=== PATIENT | male | born 1975 ===

== ENCOUNTER 2025-10-15 15:33 | Outpatient (AMB) | payer BC, SELFPAY ==
[2025-10-15 15:37] VITALS: BMI 32.5
--- NOTE | 2025-10-15 15:37 | A.PHYSOV ---
Vital Signs 10/15/25 15:37 Height 5 ft 9 in Weight 220 lb BMI 32.5 Intake Visit Reasons: F/U after injection 08/24/2025 Intake Note: Patient is a 50 year old male here for a follow up on 08/24/25 caudal injection. 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 The patient reports feeling 90% better since the caudal injection on 08/24/2025 and is not currently taking any pain medications. Prior to the injection, the pain limited the patient's desire to do anything. The patient still experiences some residual symptoms, described as a feeling of tightness in the upper gluteal region upon standing after prolonged periods of sitting, which resolves with stretching. The patient notes that active days are better. The patient reports a weight loss from 292 lbs to 270 lbs, attributed to being more active. Pain Description - Location: The patient reports feeling discomfort in the upper gluteal region. - Character: The discomfort is described as a feeling of tightness that requires stretching. - Exacerbating factors: Symptoms are noticed after getting up from prolonged sitting, such as watching a football game or working at a computer. - Relieving factors: Stretching alleviates the symptoms; active days are generally better. - Interference with function: Prior to the injection, the pain was significant enough that the patient didn't want to do anything. - Current status: The patient reports a 90% improvement in symptoms and is not taking any pain medications. Procedure: Caudal injection 08/24/2025 90% reduction of his pain [facility] Social History (Updated 10/15/25 @ 15:40 by Dinora Cameron MA) Alcohol intake: current Alcohol intake frequency: a few times a month Patient Tobacco Use Status: Never used Tobacco Use of substances other than those prescribed or required for medical reasons: No Review of Systems Narrative Review of Systems - Musculoskeletal: Reports intermittent tightness in the upper gluteal region after prolonged sitting. - Constitutional: Reports weight loss. Physical Exam Exam Exam: Physical Exam Lumbar Spine: Examination of his lumbar spine, there is no visible swelling or deformity. He is tender to lower lumbar facets. He is otherwise nontender. Full range of motion of his lumbar spine. He denies any pain with facet loading. Special Tests: Lhermittes sign was negative Heel Toe walk is normal Left straight leg raise: Negative Right straight leg raise: Negative Special tests Nuzhat test is negative Ganslen's test is negative SI Joint compression test negative Louise test negative Piriformis stretch is negative Lower Extremities: Full range of motion bilateral lower extremities. No calf pain or edema. Neuro: Sensation: Intact to lower extremities bilaterally Strength L2 (Psoas): 5/5 on the left and 5/5 on the right. L3 (Quads): 5/5 on the left and 5/5 on the right. L4 (Ant tibialis): 5/5 on the left and 5/5 on the right. L5 (EHL) 5/5 on the left and 5/5 on the right. S1 (Gastroc): 5/5 on the left and 5/5 on the right. DTR L4: (Patellar) Left 2 Right 2 S1: (Achilles) Left 2 Right 2 Babinski Downgoing No pathologic clonus. No involuntary movement. Vital Signs: BMI result Body Mass Index 32.5 Assessment & Plan Assessment & Plan (1) Lumbar radiculopathy: Code(s): M54.16 - Radiculopathy, lumbar region Category: Medical (2) Lumbar spondylosis: Code(s): M47.816 - Spondylosis without myelopathy or radiculopathy, lumbar region Category: Medical Plan Pain Management - Analgesia: The patient reports 90% pain improvement following a spinal steroid injection and is not using any oral pain medications. - Activities of Daily Living: The patient is now much more active, though notes some residual tightness after prolonged sitting. - Adverse Effects: The patient expressed not being a fan of the injection procedure itself but reported no other adverse effects. - Aberrant Drug-Related Behaviors: None noted; the patient is not taking pain medications. - Affect: The patient reports feeling better. Plan Patient was informed and verbally consented to the use of an ambient scribe for clinic note documentation during this visit. 1. Lumbar Disc Displacement The patient has experienced 90% improvement in symptoms following a spinal steroid injection for a lumbar disc bulge. The patient was counseled that the steroid is long-acting, lasting 3-6 months, and the ideal outcome is for the disc bulge to shrink over time. The patient was advised to continue with caution, avoiding heavy lifting and being mindful of the underlying condition despite feeling better. Encouraged low-impact activities such as walking, biking, swimming, and yoga. If the pain returns and affects quality of life after 4 months, the patient can call the office to schedule a repeat injection. Long-term surgical options were discussed but are not currently recommended. 2. Obesity The patient has successfully lost approximately 22 pounds through increased physical activity. The patient was encouraged to continue with weight loss, healthy eating, and low-impact activity, as this will also benefit the back condition. Follow-up with our office as needed. Thank you for allowing me to participate in the care of your patient. Coding Level of Care Code Tele Est Pt Level 3 (04508) Diagnoses Lumbar radiculopathy M54.16 Lumbar spondylosis M47.816
--- OUTSIDE RECORDS SUMMARY | 2025-10-15 18:31 | XMS_ITS | Clinical Summary ---
Author Organization [address] [facility] Building Address [address] [place] [address] Phone Care Team Providers Care Machine I Coremaker Name Role Phone Larisa Marks MD Primary Care Provider [phone] Allergies No known active allergies Medications clotrimazole-be tamethasone (LOTRISONE) 1-0.05 % cream Apply 1 Application topically 2 (two) times a day. 1 Active triamcinolone (KENALOG) 0.1 % cream Apply 1 Application topically 2 (two) times a day. 0 Active valACYclovir (VALTREX) 1 gram tablet Take 1 tablet (1,000 mg total) by mouth 1 (one) time each day. 14 tablet 1 5 Active gabapentin (NEURONTIN) 100 mg capsule Take 1 capsule (100 mg total) by mouth 2 (two) times a day. 60 each 1 5 Active simvastatin (ZOCOR) 20 mg tablet TAKE 1 TABLET BY MOUTH EVERYDAY AT BEDTIME 90 tablet 5 Active cyclobenzaprine (FLEXERIL) 10 mg tablet Take 1 tablet (10 mg total) by mouth 2 (two) times a day if needed for muscle spasms. 30 tablet 1 5 Active diclofenac (VOLTAREN) 75 mg EC tabletIndicatio ns:Chronic bilateral low back pain with bilateral sciatica Take 1 tablet (75 mg total) by mouth 2 (two) times a day. Do not crush, chew, or split. 60 each 5 09/21/20 25 Active Problems Problem Noted Date Diagnosed Date History of herpes genitalis 09/21/2024 Assessment & Plan (09/21/2024 2:28 PM EST): I have refilled his Valtrex. He only gets 1-2 flares a year. Asthma 12/07/2013 Overview (01/24/2024): As child Hyperlipidemia 10/17/2008 Assessment & Plan (09/21/2024 2:28 PM EST): Low-cholesterol diet discussed. Congratulated him on losing weight. He has been actively focusing on a better diet now. Will monitor lipid panel. Will continue current regimen of simvastatin 20 mg daily. Orders: Lipid panel with reflex to direct LDL; Future Obesity 10/17/2008 Displacement of lumbar inter vertebral disc without myelopathy 10/14/2006 Encounters Date Type Department Care Team Description 09/19/2025 3:15 PM EST Consult Bariatric Surgery - [place] [address] [place] [address] Aleksandr Mckeon MD Class 1 obesity due to excess calories with body mass index (BMI) of 34.0 to 34.9 in adult, unspecified whether serious comorbidity present (Primary Dx) 07/20/2025 Telephone Internal Medicine - [facility] [address] [place] [address] Baldev Lorenzo MD from Last 3 Months Immunizations Immunization Administration Dates Next Due Influenza Quadravalent, MDCK , 0.5ml, preservative free (Flucelvax) 6mo and older 12/21/2023,09/20/2020,12/27/2018 Influenza trivalent, MDCK, 0 .5mL, preservative free (Flucelvax) 6mo and older 09/21/2024 Influenza trivalent, with pr eservative (Fluzone; Afluria) 6mo and older 10/17/2008 Moderna SARS-CoV-2 COVID-19, mRNA, LNP-S, preservative free 11/25/2023 Intoloop SARS-CoV-2 COVID-19, mRNA, LNP-S, preservative free 04/08/2021,03/18/2021 Pneumococcal polysaccharide 23 valent (Pneumovax 23) 2yo and older 03/09/2014 Td Tetanus diptheria (Tdvax) 7yo and older 12/21,01/27/2002 Tdap Tetanus diptheria acell ular pertussis (Boostrix; Adacel) 7yo and older 03/07/2013 Surgical History Surgery Date Site/Laterality Comments SHOULDER SURGERY 11/15/1990 PROCEDURE: [place] UNLISTED PROCEDURE SHOULDER; COMMENT: for repeat dislocations left shoulder VASECTOMY PROCEDURE: [place] VASECTOMY UNI/BI SPX W/POSTOP SEMEN EXAMS WISDOM TOOTH EXTRACTION PROCEDURE: HISTORICAL WISDOM TEETH EXTRACTION COLONOSCOPY 01/19/2024 PROCEDURE: HISTORICAL COLONOSCOPY; COMMENT: Nonbleeding internal hemorrhoids. Otherwise normal. Repeat colonoscopy in 10 years. Medical History Medical History Date Comments Displacement of lumbar inter vertebral disc without myelopathy 10/14/2006 DX:Displacement of lumbar intervertebral disc without myelopathy Obesity 10/17/2008 DX:Obesity Hyperlipidemia 10/17/2008 DX:Hyperlipidemi a Asthma 12/07/2013 DX:Asthma; COMME NT: As child H/O colonoscopy 02/09/2024 DX:H/O colonosco py Family History Medical History Relation Name Comments Other: psoriasis Brother Strabismus Brother had corrective surgery. Alcohol abuse Father Coronary artery disease Father Heart attack Father Other: PAD Father Other: Skin cancer Father unsure ty pe Other: Degenerative disk disease Mother Heart attack Paternal Grandfather Diabetes Paternal Grandmother Heart attack Paternal Grandmother Asthma Son Heart attack Uncle 1 Paternal uncle, age 40 Other: Throat cancer Uncle 2 Materna l uncle Blindness Neg Hx Cataracts Neg Hx Glaucoma Neg Hx Macular degeneration Neg Hx Relation Name Status Comments Brother Father Maternal Grandfather Maternal Grandmother Mother Alive Paternal Grandfather (Age 62) Paternal Grandmother Alive Son Uncle 1 Uncle 2 Social History Tobacco Use Types Packs/Day Years Used Date Smoking Tobacco: Never Smokeless Tobacco: Never Tobacco Cessation:Counseling Given: Not Answered Alcohol Use Standard Drinks/Week Comments Yes 0 (1 standard drink = 0.6 oz pur e alcohol) Sex and Gender Information Value Date Recorded Sex Assigned at Not on file Legal Sex Male 3:19 PM EST Gender Identity Not on file Sexual Orientation Not on file Obstetrics History Last Filed Vital Signs Vital Sign Reading Time Taken Comments Blood Pressure 143/85 09/19/2025 3:15 PM EST Pulse 94 09/19/2025 3:15 PM EST Temperature 36.6 C (97.8 F) 09/19/2025 3:15 PM EST Respiratory Rate 16 05/28/2025 10:58 AM EDT Oxygen Saturation 97% 12/02/2024 10:44 AM EST Inhaled Oxygen Concentration - - Weight 125 kg (276 lb) 09/19/2025 3:15 PM EST Height 180.3 cm (5' 11 ) 09/19/2025 3:15 PM EST Body Mass Index 38.49 09/19/2025 3:15 PM EST Plan of Treatment Upcoming Encounters Date Type Department Care Team (Late st Contact Info) Description 03/21/2026 4:00 PM EDT Office Visit Bariatric Surgery - [address] [place] [address] Aleksandr Mckeon MD [address] [place] [phone] Health Maintenance Due Date Last Done Comments Hepatitis B Vaccines (1 of 3 - 19+ 3-dose series) 1993 Pneumococcal Vaccine: 50+ Years (2 of 2 - PCV) 03/09/2015 03/09/2014 HIV Screening 10/14/2022 Hepatitis C Screening 10/14/2022 Social Influencers of Health Screening 10/14/2022 RSV Immunization Adult Patients (1 - Risk 50-74 years 1-dose series) 2024 Zoster Vaccines (1 of 2) 2024 Depression Screening 11/15/2024 COVID-19 Vaccine ( - season) 2025 11/25/2023, 04/08/2021, 03/18/2021 Influenza Vaccine (#1) 2025 , 12/21/2023, 09/20/2020, Additional history exists Cholesterol Screening (Lipid Panel) 09/30/2029 09/30/2024, 08/10/2024, 08/10/2024, Additional history exists DTaP,Tdap,and Td Vaccines (4 - Td or Tdap) 12/21/2033 12/21/2023, 03/07/2013, 01/27/2002 Colorectal Cancer Screening: Colonoscopy 02/07/2034 02/08/2024 HIB Vaccines Aged Out No longer eligi ble based on patient's age to complete this topic HPV Vaccines Aged Out No longer eligi ble based on patient's age to complete this topic Hepatitis A Vaccines Aged Out No long er eligible based on patient's age to complete this topic IPV Vaccines Aged Out No longer eligi ble based on patient's age to complete this topic MMR Vaccines Aged Out No longer eligi ble based on patient's age to complete this topic Meningococcal ACWY Vaccine Aged Out N o longer eligible based on patient's age to complete this topic Meningococcal B Vaccine Aged Out No l onger eligible based on patient's age to complete this topic RSV Immunization Patients Under 20 months Aged Out No longer eligible based on patient's age to complete this topic Varicella Vaccines Aged Out No longer eligible based on patient's age to complete this topic Procedures Procedure Name Priority Date/Time Associated Diagnosis Comments LIPID PANEL Routine 08/10/2024 COLONOSCOPY Routine 02/08/2024 from Last 3 Months or Most Recently Relevant to Health Maintenance Results * (ABNORMAL) Lipid panel (08/10/2024) LDL/HDL Ratio 5(A) 0 - 4 Triglycerides 220(A) 0 - 150 mg/dL Cholesterol 190 0 - 200 mg/dL HDL 35(A) >=40 mg/dL LDL Cholesterol 111(A) 0 - 100 mg/dL Blood Venous blood specimen / Unknown Historical Provider LAB BLOOD ORDERABLES Nellie l Result * Colonoscopy (02/08/2024) Colonoscopy no interpretation , abstracted Anatomical Region Laterality Modality Other Historical Provider HEALTH MAINTENANCE Final Result from Last 3 Months or Most Recently Relevant to Health Maintenance Insurance [employer] (INDEPENDENCE) Care Teams Machine I Coremaker Relationship Specialty Start Date End Date Larisa Marks MD [address] [facility] [place] [phone] PCP - General Internal Medicine 08/20/25
== END 2025-10-15 15:54 | disposition home or self-care (01) ==
LOC: HO.HPHYS 15:34
PROVIDERS: Visit Provider Physician Assistant
DX: M54.16 Radiculopathy, lumbar region (principal); M47.816 Spondylosis without myelopathy or radiculopathy, lumbar region
CPT/HCPCS: 99213